=== PATIENT | male | born 1965 | race Caucasian/White ===

== ENCOUNTER 2025-05-10 08:56 | Emergency (ER) | payer SELFPAY ==
[2025-05-10 09:59] LABS: #Basophils 0.12 10x3/uL (0.0-0.2); #Eosinophils 1.06 10x3/uL (0.0-0.7); #Monocytes 0.78 10x3/uL (0.11-0.59); #Neutrophils 5.41 10x3/uL (1.40-6.50); %Basophils 1.1 % (0.0-1.0); %Eosinophils 9.6 % (0.0-10.0); %Lymphocytes 33.1 % (21.0-51.0); %Monocytes 7.1 % (0.0-10.0); %Neutrophils 48.8 % (42.0-75.0); Hematocrit 42.5 % (42.0-52.0); Hemoglobin 14.3 g/dL (14.0-18.0); Mean Corpuscular Hemoglobin 31.5 pg (27.0-31.0); Mean Corpuscular Volume 93.6 fL (78.0-98.0); Platelet Count 259 10x3/uL (130-400); Red Blood Cell (RBC) Count 4.54 mill/uL (4.70-6.10); White Blood Cell (WBC) Count 11.06 10x3/uL (4.8-10.8)
[2025-05-10] MEDS ORDERED: Nitroglycerin 0.4 MG TAB 1 EACH ONE (10:03)
[2025-05-10] MEDS ORDERED: Aspirin Chewable 81 MG TAB ONE (10:03)
[2025-05-10] MEDS ORDERED: cefTRIAXone (ROCEPHIN) 2 GM VIAL ONE (10:04)
[2025-05-10 10:10] LABS: ALT (SGPT) 22 U/L (Less than 45); AST (SGOT) 28 U/L (11-34); Albumin 4.7 g/dL (3.1-4.5); Alkaline Phosphatase 212 U/L (40-110); Anion Gap 17 mmol/L (10-20); BUN (Urea Nitrogen) 15 mg/dL (8.4-25.7); Bilirubin, Total 0.6 mg/dL (0.3-1.2); Calc. Creatinine Clearance 0 mL/min (70-130); Calcium 10.2 mg/dL (7.8-10.44); Carbon Dioxide 25 mmol/L (22-29); Chloride 100 mmol/L (98-107); Globulin 3.3 g/dL (2.4-3.5); Glucose 97 mg/dL (70-105); Lipase 25 U/L (8-78); Potassium 4.2 mmol/L (3.5-5.1); Sodium 138 mmol/L (136-145)
[2025-05-10] MEDS ORDERED: Ipratropium Bromide 2.5 ml Neb ONE (11:19)
[2025-05-10] MEDS ORDERED: Albuterol 2.5 MG (3 mL) NEB ONE (11:19)
== END 2025-05-10 12:33 | disposition home or self-care (01) ==
LOC: ERS 08:56
DX: J44.1 Chronic obstructive pulmonary disease with (acute) exacerbation (principal); I13.0 Hypertensive heart and chronic kidney disease with heart failure and stage 1 through stage 4 chronic kidney disease, or unspecified chronic kidney disease; N18.9 Chronic kidney disease, unspecified; I50.9 Heart failure, unspecified; F17.210 Nicotine dependence, cigarettes, uncomplicated; Z79.899 Other long term (current) drug therapy
CPT/HCPCS: 71045; 80053; 83605; 83690; 83880; 84484; 85025; 87040; 87149; 87428; 93005; 94644; 94760; 96365; 96375; J0696; J2919; J7611; J7644